=== PATIENT | male | born 1980 | race Caucasian/White ===

== ENCOUNTER 2016-05-23 21:48 | Emergency (ER) | payer SELFPAY ==
[2016-05-23] MEDS ORDERED: Sodium Chloride 0.9% 1,000 ML IV ONE (22:08)
[2016-05-23] MEDS ORDERED: Lidocaine 1% 20 ML MDV ONE (22:08)
[2016-05-23] MEDS ORDERED: Lidocaine 1% 20 ML MDV INJECT ONE (22:08)
[2016-05-23] MEDS ORDERED: Iopamidol 755 Mg/ML 100 ML Bottle IVPUSH STA (22:16)
--- NOTE | 2016-05-23 22:29 | EDM.PDOC ---
ED HPI Skin/Rash - General Chief Complaint: Skin Complaint Stated Complaint: PT HAS BOIL ON BACK OF NECK Time Seen by Provider: 05/23/16 22:02 - History of Present Illness INITIAL COMMENTS - FREE TEXT/NARRATIVE: HISTORY AND PHYSICAL: History of present illness: Patient 36-year-old white male subcutaneous lesion to his right neck times one week this got somewhat larger he has had spontaneous drainage recently. No fever chills nausea vomiting or other complaints Review of systems: As per history of present illness and below otherwise all systems reviewed and negative. Past medical history: As per history of present illness and as reviewed below otherwise noncontributory. Surgical history: As per history of present illness and as reviewed below otherwise noncontributory. Social history: No reported history of drug or alcohol abuse. Family history: As per history of present illness and as reviewed below otherwise noncontributory. Physical exam: HEENT: Atraumatic, normocephalic, pupils reactive, negative for conjunctival pallor or scleral icterus, mucous membranes moist, throat clear, neck supple, nontender, trachea midline. Patient has a 2 x 3 cm right posterior neck subcutaneous nodule consistent with a sebaceous cyst there is an area centrally that was draining within the area there does appear to be a sebaceous capsule a small incision was made with an 11 blade without any significant return or drain Lungs: Clear to auscultation, breath sounds equal bilaterally, chest nontender. Heart: S1S2, regular, negative for clicks, rubs, or JVD. Abdomen: Soft, nondistended, nontender. Negative for masses or hepatosplenomegaly. Negative for costovertebral tenderness. Pelvis: Stable nontender. Genitourinary: Deferred. Rectal: Deferred. Extremities: Atraumatic, negative for cords or calf pain. Neurovascular unremarkable. Neuro: Awake, alert, oriented. Cranial nerves II through XII unremarkable. Cerebellum unremarkable. Motor and sensory unremarkable throughout. Exam nonfocal. Diagnostics: CBC CMP CT neck with IV contrast Therapeutics: See above Impression: #1 probable sebaceous cyst right posterior neck with spontaneous drainage #2 probable early superficial cellulitis Definitive disposition and diagnosis as appropriate pending reevaluation and review of above. - Related Data Allergies Allergy/AdvReac Type Severity Reaction Status Date / Time No Known Allergies Allergy Verified 05/23/16 22:01 Home Meds: Ambulatory Orders Medication Instructions Recorded Confirmed . [No Known Home Meds] 05/23/16 05/23/16 ED ROS GENERAL - Review of Systems Review Of Systems: ROS reveals no pertinent complaints other than HPI. ED EXAM, SKIN/RASH Exam: See Below (See dictation) Course - Vital Signs Last Recorded V/S: Last Vital Signs Temp 36.8 C 05/23/16 21:51 Pulse 68 05/23/16 21:51 Resp 14 05/23/16 21:51 BP 138/77 05/23/16 21:51 Pulse Ox 99 05/23/16 21:51 - Orders/Labs/Meds Orders: Active Orders 24 hr Category Date Time Status Soft Tissue Neck w Cont [CT] Stat Exams 05/23/16 22:06 Ordered CBC WITH AUTO DIFF [HEME] Stat Lab 05/23/16 22:07 Ordered CMP [COMPREHENSIVE METABOLIC PN,CMP] [CHEM] Stat Lab 05/23/16 22:07 Ordered CULTURE WOUND [RM] Stat Lab 05/23/16 22:05 Received Sodium Chloride 0.9% [Normal Saline] 1,000 ml Med 05/23/16 22:08 Active IV .BOLUS Medication Orders Sodium Chloride (Normal Saline) 1,000 mls @ 999 mls/hr IV .BOLUS ONE Stop: 05/23/16 23:08 Meds: Medications Generic Name Dose Route Start Last Admin Trade Name Freq PRN Reason Stop Dose Admin Sodium Chloride 1,000 mls @ 999 mls/hr 05/23/16 22:08 Normal Saline IV 05/23/16 23:08 .BOLUS ONE Discontinued Medications Generic Name Dose Route Start Last Admin Trade Name Freq PRN Reason Stop Dose Admin Iopamidol 100 ml 05/23/16 22:16 Isovue-370 (76%) IVPUSH 05/23/16 22:17 ONETIME STA Lidocaine HCl 20 ml 05/23/16 22:08 Xylocaine 1% INJECT 05/23/16 22:09 ONETIME ONE Lidocaine HCl Confirm 05/23/16 22:08 Xylocaine 1% Administered 05/23/16 22:09 Dose 20 ml .ROUTE .STK-MED ONE Departure - Departure Time of Disposition: 22:27 Disposition: Home, Self-Care 01 Condition: good Clinical Impression: Sebaceous cyst, Cellulitis Forms: ED Department Discharge Additional Instructions: The following information is given to patients seen in the emergency department who are being discharged to home. This information is to outline your options for follow-up care. We provide all patients seen in our emergency department with a follow-up referral. The need for follow-up, as well as the timing and circumstances, are variable depending upon the specifics of your emergency department visit. If you don't have a primary care physician on staff, we will provide you with a referral. We always advise you to contact your personal physician following an emergency department visit to inform them of the circumstance of the visit and for follow-up with them and/or the need for any referrals to a consulting specialist. The emergency department will also refer you to a specialist when appropriate. This referral assures that you have the opportunity for followup care with a specialist. All of these measure are taken in an effort to provide you with optimal care, which includes your followup. Under all circumstances we always encourage you to contact your private physician who remains a resource for coordinating your care. When calling for followup care, please make the office aware that this follow-up is from your recent emergency room visit. If for any reason you are refused follow-up, please contact the [facility] emergency department at and asked to speak to the emergency department charge nurse. [facility] - General Surgery Professional Building [address] [place] [address], [address] [place] [address] Bactrim clindamycin as prescribed Ultram as prescribed followup Gen. surgery above call schedule appointment follow up primary medical doctor 24-48 hours return as needed as discussed - My Orders Last 24 Hours: My Active Orders 05/23/16 22:05 CULTURE WOUND [RM] Stat 05/23/16 22:06 Soft Tissue Neck w Cont [CT] Stat 05/23/16 22:07 CBC WITH AUTO DIFF [HEME] Stat CMP [COMPREHENSIVE METABOLIC PN,CMP] [CHEM] Stat 05/23/16 22:08 Sodium Chloride 0.9% [Normal Saline] 1,000 ml IV .BOLUS - Assessment/Plan Last 24 Hours: My Active Orders 05/23/16 22:05 CULTURE WOUND [RM] Stat 05/23/16 22:06 Soft Tissue Neck w Cont [CT] Stat 05/23/16 22:07 CBC WITH AUTO DIFF [HEME] Stat CMP [COMPREHENSIVE METABOLIC PN,CMP] [CHEM] Stat 05/23/16 22:08 Sodium Chloride 0.9% [Normal Saline] 1,000 ml IV .BOLUS
[2016-05-23 22:53] LABS: CHLORIDE,CL 108 mmol/L (98-110); SODIUM,NA 141 mmol/L (136-146)
[2016-05-24 00:30] VITALS: BP 125/70
--- NOTE | 2016-05-26 19:54 | CT ---
EXAM DATE: 05/23/16 PATIENT'S AGE: 36 Patient: CRUZITO ESQIUVEL Facility: [place], [place] Site . Site : [id number] Study: CT ST Neck [id number] 11:19:33 PM Ordering Physician: Evelyn Ac Final Report: HISTORY: Swelling at the back of the neck, question abscess. TECHNIQUE: Soft tissue neck was scanned in the axial plane at 3 mm intervals after 75 cc of Isovue-370. Sagittal and coronal reconstructions were performed. FINDINGS: A 2.4 cm mucous retention cyst or polyp is seen within the left maxillary sinus. The remainder of the visualized paranasal sinuses and mastoid air cells are well aerated. The portion of the visualized orbits are symmetric. The posterior nasopharynx is symmetric. Parapharyngeal fat planes are preserved. There is generous jugulodigastric lymph nodes. The right measures 1.5 x 1.5 cm and the left 1.3 x 1.2 cm. No posterior cervical lymph nodes are seen. A 1.4 x 0.8 cm right submandibular lymph node is seen. No supraclavicular lymphadenopathy is seen. The parotid glands are symmetric in size and density. The submandibular glands are symmetric in size and density. The valleculae and piriform sinuses are symmetric. The vocal cords are normal. Always pain The thyroid is homogeneous. Axial image 32 demonstrates a very superficial 1.2 x 1.1 cm hypodense focus with adjacent skin thickening. This measures 1.9 cm in height on sagittal reconstructions. This does not have an enhancing rim and does not contain air. There is minimal increased density in the adjacent subcutaneous fat. IMPRESSION: 1. Mucous retention cyst or polyp within the left maxillary sinus. 2. Generous jugulodigastric lymph nodes bilaterally. These may be reactive. 3. 1.9 cm hypodense focus seen in the posterior right neck. This is very superficial with adjacent skin thickening. This may represent a infected sebaceous cyst. There is no enhancing rim or air to confirm abscess. Dictated by Mai Winter MD @ 05/23/2016 11:35:35 PM Dictated by: Mai Winter MD @ 05/23/2016 23:35:46 (Electronic Signature) Report Signed by Proxy and Original Signed Document filed in the Medical Record. [facility]
== END 2016-05-24 00:06 | disposition home or self-care (01) ==
LOC: MW.ED 21:48 → EEVIPCON 21:48 → MW.ED 05-24 00:05
DX: L72.3 Sebaceous cyst (principal); L03.221 Cellulitis of neck
CPT/HCPCS: 10060; 36415; 70491; 80053; 85025; 87070; 87077; 87186; 96360; 99283; J7040; Q9967